=== PATIENT | female | born 1950 | race American Indian/Alaskan Native ===

== ENCOUNTER 2016-09-23 11:44 | Inpatient (IN) | payer MEDICARE ==
[2016-09-23 13:11] LABS: Basophils % (Auto) 0.4 % (0.0-1.8); Mean Corpuscular HGB Conc 29 % (30-34); Mean Corpuscular Volume 76 fl (79-97); Platelet Count 298 K/mm3 (140-440); Red Blood Count 4.45 M/mm3 (3.65-5.03); White Blood Count 7.6 K/mm3 (4.5-11.0)
[2016-09-23 13:19] LABS: Hematocrit 33.7 % (30.3-42.9); Hemoglobin 9.8 gm/dl (10.1-14.3); Mean Corpuscular Hemoglobin 22 pg (28-32)
[2016-09-23 13:20] LABS: INR 1.22 (0.87-1.13)
[2016-09-23 13:21] LABS: Partial Thromboplastin Time 30.6 Sec. (24.2-36.6)
--- NOTE | 2016-09-23 13:37 | XRay Report ---
PA and lateral chest: The heart is big. This a bipolar pacemaker. There is a focal area of atelectasis or scar in the left midlung. There is no vascular congestion and no infiltrates. I have no prior study for comparison. Of incidental note are surgical nona in the right humerus head. Impression: Mild cardiomegaly. No acute findings noted.
[2016-09-23 13:43] LABS: BUN/Creatinine Ratio 13.33; Blood Urea Nitrogen 8 mg/dL (7-17); Calcium 8.8 mg/dL (8.4-10.2); Carbon Dioxide 23 mmol/L (22-30); Chloride 102.4 mmol/L (98-107); Glucose 88 mg/dL (65-100); Sodium 140 mmol/L (137-145)
[2016-09-23 13:46] LABS: Anion Gap 19 mmol/L
[2016-09-23 13:49] LABS: Potassium 4.5 mmol/L (3.6-5.0)
[2016-09-23 13:57] LABS: Amylase 72 units/L (27-131); Lipase 29 units/L (13-60)
[2016-09-23] MEDS ORDERED: ASPIRIN PO ONE (18:32)
[2016-09-23] MEDS ORDERED: MORPHINE IV ONE (18:32)
--- NOTE | 2016-09-23 18:37 | Emergency Department Report ---
ED Chest Pain HPI - General Chief Complaint: Chest Pain Stated Complaint: CHEST PAIN Time Seen by Provider: 09/23/16 18:28 Source: patient Mode of arrival: Ambulatory Limitations: No Limitations - History of Present Illness Initial Comments: This is a 66-year-old -[place]ian female presents to the emergency department from home with complaint of midsternal right-sided chest pain has been going on since 10 PM last night. The intensity improved when she first got to the emergency department but has since worsened. It is associated with some mild shortness of breath and some swelling to the bilateral feet. She denies any fever, nausea, vomiting, diaphoresis. There is some associated radiation to the right side of the back. No recent travel or sick contacts at home. The patient has a past medical history of rheumatoid arthritis, CHF, coronary artery disease with one stent, hypertension and pacemaker placement. The patient's primary care doctor is a Dr. Betts and her roentgenology teacher is through the [facility] system. She did not take anything for symptoms prior to presentation. - Related Data Allergies Allergy/AdvReac Type Severity Reaction Status Date / Time No Known Allergies Allergy Unverified 09/23/16 12:18 JER score - Jer Score Age > 65: (1) Yes Aspirin use within the Past 7 Days: (0) No 3 or more CAD Risk Factors: (1) Yes 2 or more Angina events in past 24 hrs: (1) Yes Known CAD with more than 50% Stenosis: (0) No Elevated Cardiac Markers: (0) No ST Deviation Greater than 0.5mm: (0) No JER Score: 3 ED Review of Systems ROS: Stated complaint: CHEST PAIN Other details as noted in HPI Comment: All other systems reviewed and negative Constitutional: denies: chills, fever Eyes: denies: eye pain, eye discharge, vision change ENT: denies: ear pain, throat pain Respiratory: shortness of breath. denies: cough Cardiovascular: chest pain, edema Gastrointestinal: denies: abdominal pain, nausea, diarrhea Genitourinary: denies: urgency, dysuria, discharge Musculoskeletal: back pain. denies: arthralgia Skin: denies: rash, lesions Neurological: denies: headache, weakness, paresthesias ED Past Medical Hx - Past Medical History Previous Medical History?: Yes Hx Hypertension: Yes Hx Heart Attack/AMI: Yes (1 stent) Hx Congestive Heart Failure: Yes Hx Arthritis: Yes (rheumatory) - Surgical History Past Surgical History?: Yes Additional Surgical History: pacemaker 2016 ([facility] Dr. Cisneros, [facility] [place]) - Social History Smoking Status: Former Smoker Substance Use Type: None, Non Opiate Pain ED Physical Exam - General Limitations: No Limitations - Other Other exam information: GENERAL: The patient is well-developed well-nourished. Patient appears uncomfortable but in no acute distress. HEENT: Normocephalic. Atraumatic. Extraocular motions are intact. Patient has moist mucous membranes. Pupils equal reactive to light bilaterally. NECK: Supple. Trach is midline. CHEST/LUNGS: Clear to auscultation. There is no respiratory distress noted. Chest pain is not reproducible to palpation of the chest wall. HEART/CARDIOVASCULAR: Regular. There is no tachycardia. There is no gallop rub or murmur. ABDOMEN: Abdomen is soft, nontender. Patient has normal bowel sounds. There is no abdominal distention. SKIN: Skin is warm and dry NEURO: The patient is awake, alert, and oriented. The patient is cooperative. The patient has no focal neurologic deficits. The patient has normal speech. MUSCULOSKELETAL: There is no tenderness or deformity. There is no limitation range of motion. There is no evidence of acute injury. ED Course Vital Signs 09/23/16 09/23/16 09/23/16 12:18 15:23 15:30 Temperature 98.5 F Pulse Rate 67 73 68 Respiratory 16 18 10 L Rate Blood Pressure 152/78 121/66 121/66 O2 Sat by Pulse 100 97 98 Oximetry 09/23/16 09/23/16 09/23/16 15:40 15:50 16:00 Temperature Pulse Rate 69 69 73 Respiratory 12 15 18 Rate Blood Pressure 126/80 126/80 126/80 O2 Sat by Pulse 98 98 96 Oximetry 09/23/16 09/23/16 09/23/16 16:10 16:20 16:30 Temperature Pulse Rate 68 68 71 Respiratory 27 H 16 18 Rate Blood Pressure 126/80 126/80 126/80 O2 Sat by Pulse 97 98 97 Oximetry 09/23/16 09/23/16 09/23/16 16:40 16:50 17:00 Temperature Pulse Rate 69 69 74 Respiratory 15 10 L 22 Rate Blood Pressure 126/80 126/80 126/80 O2 Sat by Pulse 98 97 97 Oximetry 09/23/16 09/23/16 09/23/16 17:10 17:20 17:30 Temperature Pulse Rate 82 70 89 Respiratory 11 L 34 H 12 Rate Blood Pressure 126/80 126/80 126/80 O2 Sat by Pulse 98 98 97 Oximetry 09/23/16 09/23/16 09/23/16 17:40 19:23 19:30 Temperature Pulse Rate 79 71 60 Respiratory 15 18 25 H Rate Blood Pressure 126/80 126/80 176/69 O2 Sat by Pulse 98 Oximetry 09/23/16 09/23/16 09/23/16 19:40 19:50 20:00 Temperature Pulse Rate 77 60 60 Respiratory 19 15 19 Rate Blood Pressure 162/73 162/73 162/73 O2 Sat by Pulse Oximetry 09/23/16 09/23/16 09/23/16 20:10 20:20 20:30 Temperature Pulse Rate 59 L 60 60 Respiratory 16 18 20 Rate Blood Pressure 162/73 166/82 167/83 O2 Sat by Pulse Oximetry 09/23/16 09/23/16 09/23/16 20:40 20:50 21:00 Temperature Pulse Rate 62 60 60 Respiratory 20 18 17 Rate Blood Pressure 167/83 164/78 164/78 O2 Sat by Pulse Oximetry 09/23/16 09/23/16 09/23/16 21:10 21:58 22:00 Temperature Pulse Rate 64 65 63 Respiratory 23 18 14 Rate Blood Pressure 154/73 148/79 148/79 O2 Sat by Pulse Oximetry 09/23/16 09/23/16 09/23/16 22:10 22:20 22:30 Temperature Pulse Rate 64 60 64 Respiratory 20 17 22 Rate Blood Pressure 139/81 147/70 147/70 O2 Sat by Pulse Oximetry 09/23/16 09/23/16 09/23/16 22:40 22:50 23:00 Temperature Pulse Rate 61 62 62 Respiratory 20 23 17 Rate Blood Pressure 133/74 130/76 130/76 O2 Sat by Pulse Oximetry 09/23/16 23:10 Temperature Pulse Rate 67 Respiratory 14 Rate Blood Pressure 140/71 O2 Sat by Pulse Oximetry ED Medical Decision Making - Lab Data Result diagrams: 09/23/16 12:49 09/23/16 12:49 - EKG Data -: EKG Interpreted by Me EKG shows normal: sinus rhythm (with PACs), axis (left axis deviation), intervals, QRS complexes (LVH, Q waves in inferior leads), ST-T waves ( nonspecific ST-T changes) Rate: normal - EKG Data When compared to previous EKG there are: previous EKG unavailable Interpretation: other (sinus rhythm with PACs, left axis deviation, LVH, Q waves to the inferior leads) - Radiology Data Radiology results: report reviewed, image reviewed interpreted by me: Chest x-ray did not show any acute process. Heart is normal shape and size. No effusions. No pneumothorax. No signs of pneumonia seen. CT angiography of the chest shows left lower lung subsegmental pulmonary emboli extending very near the posterior and medial basilar left lower lung segmental pulmonary arterial branches. - Medical Decision Making 66-year-old female presents to the emergency department with complaint of chest pain since last night as well as some intermittent shortness of breath. The patient presents appearing uncomfortable but in no acute distress. EKG does not show any signs of ST elevation CO. Patient has had negative troponins 3. However the patient had a elevated d-dimer at [address] angiography[address] results show left lower lobe subsegmental pulmonary emboli that encroach the segmental portions of the posterior medial basilar left arterial branches. Patient will be a started on heparin and has been accepted for admission by the hospitalist, Dr. Britton. - Differential Diagnosis CO, PE, CHF, costochondritis, pneumonia Critical Care Time: No Critical care attestation.: If time is entered above; I have spent that time in minutes in the direct care of this critically ill patient, excluding procedure time. ED Disposition Clinical Impression: Pulmonary emboli Qualifiers: Pulmonary embolism type: other Chronicity: acute Acute cor pulmonale presence: without acute cor pulmonale Qualified Code(s): I26.99 - Other pulmonary embolism without acute cor pulmonale Chest pain Qualifiers: Chest pain type: unspecified Qualified Code(s): R07.9 - Chest pain, unspecified Disposition: OP ADMITTED IP TO THIS HOSP Is pt being admited?: Yes Condition: Stable Time of Disposition: 00:42
--- NOTE | 2016-09-23 18:46 | Admit Criteria Form ---
Admission Criteria Documentation: PULMONARY EMBOLISM Clinical Indications for Admission to Inpatient Care (Place 'X' for any and all applicable criteria): Admission is indicated by ANY ONE of the following 1,2,3,4,5 [ ]I. Onset of hypoxia [ ]II. Hemodynamic instability 5 [ ]III. Massive pulmonary embolism (eg, acute embolism causing sustained hypotension, pulselessness, or bradycardia)5 [ ]IV. Need for IV narcotics (eg, to treat dyspnea) [ ]V. Current use of home oxygen therapy [ ]. Active bleeding [ ]VII. Recent surgery [ ]VIII. Active peptic ulcer disease [ ]IX. Documented extensive thrombosis (eg, clot in vena cava or above iliofemoral bifurcation) [ ]X. Embolism while on anticoagulation [ ]XI. 6 [X]XII. Appropriate monitoring and therapy cannot be provided in home or outpatient setting. [ ]XIII. Systemic or catheter-directed thrombolysis 5,7 [ ]XIV. Catheter embolectomy and fragmentation 6 [ ]XV. Vena cava filter placement5 [ ]XVI. Severely diminished cardiopulmonary reserve (eg, cor pulmonale, pulmonary hypertension) [ ]XVII. Severe renal failure (eg, GFR less than 30 mL/min/1.73m2 (0.5 mL/sec/ 1.73m2)) [ ]XVIII.Right ventricular dysfunction (eg, by echocardiogram) 6,11 [ ]XIX. Positive cardiac biomarker (eg, troponin T or I > 0.1 ng/mL (mcg/L), highly sensitive troponin I assay greater than 0.014 ng/mL (mcg/L), BNP or NT proBNP > assay threshold)5,8,9 [ ]XX. Known clotting abn or def (eg, liver disease, antithrombin III, protein C, or protein S abnormality) [ ]XXI. History of heparin-induced thrombocytopenia [ ]XXII. Inpatient admission required rather than observation care (Also use Pulmonary Embolism: Observation Care guideline as appropriate) because of ANY ONE of the following: [ ] a) Significant autoimmune (thrombocytopenia) or coagulopathic reaction occurs in response to anticoagulation [ ] b) Respiratory symptoms (eg, tachypnea, dyspnea) that are severe or persistent [ ] c) Other condition, treatment, or monitoring requiring inpatient admission Extended stay beyond goal length of stay may be needed for 3,28 [ ]a) Hemorrhage or recent surgery [ ]b) Recurrent thromboembolism [ ]c) Persistent hypoxemia [ ]d) Heparin-induced thrombocytopenia The original [facility] content created by [facility] has been revised. The portions of the content which have been revised are identified through the use of italic text or in bold, and [facility] has neither reviewed nor approved the modified material. All other unmodified content is copyright [facility] [employer]. Please see references footnoted in the original [facility] [employer] edition 2016 Admission Criteria Met: Yes
[2016-09-23] MEDS ORDERED: NACL ONE (20:17)
--- NOTE | 2016-09-23 22:15 | Cat Scan Report ---
FINAL REPORT EXAM: CT ANGIO CHEST HISTORY: CP, elevated dimer TECHNIQUE: CT imaging obtained through the chest in pulmonary angiographic phase following intravenous administration of 100 cc Omnipaque 350 contrast. Transaxial, Coronal and sagittal reformats are provided. PRIORS: None. FINDINGS: Main pulmonary artery is slightly enlarged. Left lower lung segmental pulmonary emboli seen on axial series 3, image 59. Thoracic aorta is normal in course and caliber. Cardiomegaly. Partially imaged pacemaker leads. No pericardial effusion. Bibasilar atelectasis/scarring. No pneumothorax, effusion or focal airspace disease. The central airways are patent. No bronchiectasis. Imaged portion of the upper abdomen is remarkable for a right hepatic nonenhancing 17 millimeter cyst adjacent to the gallbladder fossa on axial image 105 with eccentric punctate 2 millimeter calcification. Additional low-density lesion in the superior right hepatic lobe measures up to 8 millimeters on axial image 76, which is too small to fully characterize but is probably benign. The superficial soft tissues are unremarkable. No acute bony abnormality or worrisome osseous lesions identified. Glenohumeral osteoarthritis. IMPRESSION: Left lower lung subsegmental pulmonary emboli extending very near the posterior and medial basilar left lower lung segmental pulmonary arterial branches. Dr. Ortega discussed findings with Dr. Richards at [address] [employer] following the examination.
--- NOTE | 2016-09-23 22:29 | History and Physical Report ---
History of Present Illness Date of examination: 09/23/16 Chief complaint: Chest pain History of present illness: 66-year-old -[place] female with past medical history significant for A. fib status post pacemaker placement, hypertension, CAD status post stent placement, arthritis presented to the emergency department complaining of chest tightness that started this evening. Right-sided chest tightness, 7 out of 10 in intensity, with radiation to the back. Tightness is on and off and happened while at rest. Patient denied any shortness of breath, cough. Patient denied any recent surgery or immobilization. REVIEW OF SYSTEMS: GENERAL: no weight change, no fatigue, no fever HEAD: no head ache EYES: no blurry vision, no acute visual loss EARS: no hearing loss, no discharge, no earache NOSE: no stuffiness, no sneezing, no discharge MOUTH, THROAT AND NECK: no bleeding gums, no sore throat, no swollen neck CARDIAC: no palpitations, no dyspnea on exertion, no orthopnea, no PND, no edema , + chest pain RESPIRATORY: no shortness of breath, no wheeze, no cough, no sputum, no hemoptysis, no asthma GI: no decreased appetite, no nausea, no vomiting, no dysphagia, no diarrhea, no constipation, no abdominal pain URINARY: no change in frequency, no urgency, no polyuria, no hematuria, no incontinence MUSCULOSKELETAL: no muscle weakness, no pain, no joint stiffness NEUROLOGIC: no loss of sensation/numbness, no tingling, no tremors, no weakness/ paralysis HEMATOLOGIC: no anemia, no easy bruising SKIN: no rashes ENDOCRINE: no heat/cold intolerance, no polyuria, no polydipsia, no thyroid problems, no diabetes PSYCHIATRIC: no anxiety, no depression, no suicidal ideations Past History Past Medical History: atrial fib, CAD, hypertension Past Surgical History: Other (carpal tunnel release and shoulder surgery) Social history: full code. denies: smoking, alcohol abuse, prescription drug abuse, IV drug use Family history: CAD Medications and Allergies Allergies Allergy/AdvReac Type Severity Reaction Status Date / Time No Known Allergies Allergy Unverified 09/23/16 12:18 Exam - Physical Exam Narrative exam: Not in cardiopulmonary distress. The patient appeared well nourished and normally developed. Vital signs as documented. Head exam is unremarkable. No scleral icterus . Neck is without jugular venous distension, thyromegaly, or carotid bruits. Lungs are clear to auscultation. Cardiac exam reveals regular rate and Rhythm. First and second heart sounds normal. No murmurs, rubs or gallops. Abdominal exam reveals normal bowel sounds, no masses, no organomegaly and no aortic enlargement. Extremities are nonedematous and both femoral and pedal pulses are normal. 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 No focal weakness. - Constitutional Vitals: Temp Pulse Resp BP Pulse Ox 98.5 F 64 23 154/73 98 09/23/16 12:18 09/23/16 21:10 09/23/16 21:10 09/23/16 21:10 09/23/16 17:40 Results - Labs CBC & Chem 7: 09/23/16 12:49 09/23/16 12:49 Labs: Laboratory Last Values WBC 7.6 K/mm3 (4.5-11.0) 09/23/16 12:49 RBC 4.45 M/mm3 (3.65-5.03) 09/23/16 12:49 Hgb 9.8 gm/dl (10.1-14.3) L 09/23/16 12:49 Hct 33.7 % (30.3-42.9) 09/23/16 12:49 MCV 76 fl (79-97) L 09/23/16 12:49 MCH 22 pg (28-32) L 09/23/16 12:49 MCHC 29 % (30-34) L 09/23/16 12:49 RDW 20.0 % (13.2-15.2) H 09/23/16 12:49 Plt Count 298 K/mm3 (140-440) 09/23/16 12:49 Lymph % (Auto) 18.8 % (13.4-35.0) 09/23/16 12:49 [place] % (Auto) 4.7 % (0.0-7.3) 09/23/16 12:49 Eos % (Auto) 1.0 % (0.0-4.3) 09/23/16 12:49 Baso % (Auto) 0.4 % (0.0-1.8) 09/23/16 12:49 Lymph # 1.4 K/mm3 (1.2-5.4) 09/23/16 12:49 [place] # 0.4 K/mm3 (0.0-0.8) 09/23/16 12:49 Eos # 0.1 K/mm3 (0.0-0.4) 09/23/16 12:49 Baso # 0.0 K/mm3 (0.0-0.1) 09/23/16 12:49 Seg Neutrophils % 75.1 % (40.0-70.0) H 09/23/16 12:49 Seg Neutrophils # 5.7 K/mm3 (1.8-7.7) 09/23/16 12:49 PT 15.3 Sec. (12.2-14.9) H 09/23/16 12:49 INR 1.22 (0.87-1.13) H 09/23/16 12:49 APTT 30.6 Sec. (24.2-36.6) 09/23/16 12:49 D-Dimer 1714.63 ng/mlDDU (0-234) H 09/23/16 19:38 Sodium 140 mmol/L (137-145) 09/23/16 12:49 Potassium 4.5 mmol/L (3.6-5.0) 09/23/16 12:49 Chloride 102.4 mmol/L (98-107) 09/23/16 12:49 Carbon Dioxide 23 mmol/L (22-30) 09/23/16 12:49 Anion Gap 19 mmol/L 09/23/16 12:49 BUN 8 mg/dL (7-17) 09/23/16 12:49 Creatinine 0.6 mg/dL (0.7-1.2) L 09/23/16 12:49 Estimated GFR > 60 ml/min 09/23/16 12:49 BUN/Creatinine Ratio 13.33 % 09/23/16 12:49 Glucose 88 mg/dL (65-100) 09/23/16 12:49 Calcium 8.8 mg/dL (8.4-10.2) 09/23/16 12:49 Troponin T 0.014 ng/mL (0.00-0.029) 09/23/16 19:38 NT-Pro-B Natriuret Pep 2129 pg/mL (0-900) H 09/23/16 12:49 Amylase 72 units/L (27-131) 09/23/16 12:49 Lipase 29 units/L (13-60) 09/23/16 12:49 - Imaging and Cardiology CT scan - chest: report reviewed (right lower lobe subsegmental PE) Assessment and Plan Assessment and plan: Chest pain PE A. fib status post pacemaker CAD status post stent Hypertension - Patient started on heparin drip - Restart home medication - Cardiology consult placed - Cardiac enzymes were negative - A. fib is rate controlled DVT prophylaxis - On therapeutic heparin Disposition - Admit to telemetry floor Advance Directives: Yes VTE prophylaxis?: Chemical Plan of care discussed with patient/family: Yes
[2016-09-23] MEDS ORDERED: HEPARIN 10,000 UNITS/10 ML IV ONE (22:50)
[2016-09-23] MEDS ORDERED: HEPARIN/ 0.45% NACL-25,000 UNIT/500 ML 25,000 UNIT/500 ML BAG IV SCH (23:00)
[2016-09-23 23:52] LABS: INR 1.24 (0.87-1.13)
[2016-09-24] MEDS: MORPHINE IV PRN ×2 (05:15→09:23)
[2016-09-24] MEDS ORDERED: PROAIR IH PRN (08:26)
[2016-09-24] MEDS ORDERED: NITROSTAT SL PRN (08:26)
[2016-09-24] MEDS ORDERED: PROVENTIL IH PRN (08:40)
[2016-09-24] MEDS: TOPROL XL PO SCH (09:20)
[2016-09-24] MEDS: COZAAR PO SCH (09:20)
[2016-09-24] MEDS: BABY ASPIRIN PO SCH (09:21)
[2016-09-24] MEDS ORDERED: ASPIRIN PO SCH (10:00)
[2016-09-24] MEDS ORDERED: BRILINTA PO SCH (10:00)
[2016-09-24] MEDS ORDERED: FLUARIX QUAD 2016-2017(36 MOS+) IM ONE (12:00)
--- NOTE | 2016-09-24 12:36 | Consultation ---
History of Present Illness Consult date: 09/24/16 Requesting physician: AYUSH LEUNG Consult reason: chest pain History of present illness: This is a 66-year-old female with known history of coronary disease PCI of LAD 2016 PCI of the RCA in August 2016 [place] patient required dual- chamber pacemaker for symptomatic Mobitz type 2-1 block patient presents here since having chest pain right-sided radiate into her neck with no nausea no vomiting patient on CT of the chest, pulmonary embolism placed on heparin therapy patient chest pain is mildly improved has no nausea no vomiting patient denies any sedentary Activities didn't take a recent fight [employer] only. Patient denies any swelling. No melanoma. No bleeding issues. No syncope episode. No palpitations. Chest pain is sharp in nature and not exertional Past History Past Medical History: CAD (PCI of the LAD in 2015, PCI of the RCA with 3 drug- eluting stents and a dual-chamber pacemaker Biotronik), hypertension, hyperlipidemia Past Surgical History: Other (carpal tunnel release and shoulder surgery and a dual-chamber pacemaker Biotronik) Social history: full code. denies: smoking, alcohol abuse, prescription drug abuse, IV drug use Family history: CAD Medications and Allergies Allergies Allergy/AdvReac Type Severity Reaction Status Date / Time No Known Allergies Allergy Unverified 09/23/16 12:18 Home Medications Medication Instructions Recorded Confirmed Last Taken Type Albuterol Sulfate [Ventolin HFA] 2 puff IH Q4H PRN 09/24/16 09/24/16 Unknown History Aspirin [Aspirin BABY CHEW TAB] 81 mg PO QDAY 09/24/16 09/24/16 Unknown History AtorvaSTATin [Lipitor] 40 mg PO DAILY 09/24/16 09/24/16 Unknown History Benzonatate [Tessalon Perles] 100 mg PO Q8HR 09/24/16 09/24/16 Unknown History HYDROcodone/APAP 5-325 [[place] 1 each PO Q8HR PRN 09/24/16 09/24/16 Unknown History 5/325] Losartan [Cozaar] 50 mg PO QDAY 09/24/16 09/24/16 Unknown History Metoprolol Xl [Metoprolol 25 mg PO QDAY 09/24/16 09/24/16 Unknown History SUCCINATE ER TAB] Nitroglycerin [Nitrostat] 0.4 mg SL Q5M PRN 09/24/16 09/24/16 Unknown History Prednisone [predniSONE] 1 mg PO QDAY 09/24/16 09/24/16 Unknown History Ticagrelor [Brilinta] 90 mg PO BID 09/24/16 09/24/16 Unknown History Active Meds: Active Medications Acetaminophen/Hydrocodone Bitart ([place] 5/325) 1 each PO Q8H PRN PRN Reason: Pain,MODERATE Albuterol (Proventil) 2.5 mg IH Q6HRT PRN PRN Reason: Shortness Of Breath Apixaban (Eliquis) 10 mg PO Q12HR MARTIN Aspirin (Baby Aspirin) 81 mg PO QDAY [facility] Last Admin: 09/24/16 09:21 Dose: 81 mg Atorvastatin Calcium (Lipitor) 40 mg PO HS MARTIN Benzonatate (Tessalon Perles) 100 mg PO Q8HR MARTIN Clopidogrel Bisulfate (Plavix) 75 mg PO QDAY [facility] Heparin Sodium/Sodium Chloride (Heparin/ 0.45% Nacl-25,000 Unit/500 Ml) 25,000 unit in 500 mls @ 20 mls/hr IV TITRATE MARTIN; 1,000 UNITS/HR PRN Reason: Protocol Stop: 09/24/16 23:00 Last Titration: 09/24/16 08:23 Dose: 1,000 units/hr, 20 mls/hr Losartan Potassium (Cozaar) 50 mg PO QDAY [facility] Last Admin: 09/24/16 09:20 Dose: 50 mg Metoprolol Succinate (Toprol Xl) 25 mg PO QDAY [facility] Last Admin: 09/24/16 09:20 Dose: 25 mg Morphine Sulfate (Morphine) 2 mg IV Q4H PRN PRN Reason: Pain, Moderate (4-6) Last Admin: 09/24/16 09:23 Dose: 2 mg Nitroglycerin (Nitrostat) 0.4 mg SL Q5M PRN PRN Reason: Chest Pain Prednisone (Prednisone) 1 mg FEEDTUBE QDAY [facility] Review of Systems All systems: negative (except HPI) Physical Examination Vital Signs Temp Pulse Resp BP Pulse Ox 98.5 F 67 16 152/78 100 09/23/16 12:18 09/23/16 12:18 09/23/16 12:18 09/23/16 12:18 09/23/16 12:18 General appearance: no acute distress, well-nourished HEENT: Positive: PERRL, Mucus Membranes Moist Neck: Positive: neck supple, trachea midline Cardiac: Positive: Reg Rate and Rhythm, S1/S2. Negative: Audible Murmur Lungs: Positive: clear to auscultation, Normal Breath Sounds Neuro: Positive: Grossly Intact Abdomen: Positive: Soft, Active Bowel Sounds. Negative: Tender, Distended Female genitourinary: deferred Skin: Positive: Clear Incision: Cardiac Cath Site Musculoskeletal: No Pain, Normal Range of Motion Extremities: Present: normal. Absent: edema Results 09/23/16 12:49 09/23/16 12:49 Coagulation 09/23/16 Range/Units 23:10 PT 15.5 H (12.2-14.9) Sec. INR 1.24 H (0.87-1.13) APTT 178.0 H* (24.2-36.6) Sec. - Imaging and Cardiology Cardiac cath: report reviewed (08/2016 main patent LAD mid stent patent circumflex patent RCA diffuse disease drug-eluting stent 2.75 x 38 and 3 5 x 38 over lapping, proximal neeta 4.0 by 16 secondary no reflow. With normal LV function) EKG interpretations - Telemetry EKG Rhythm: Sinus Rhythm (normal sinus rhythm with T-wave inversion in inferior leads no change from previous EKG) Assessment and Plan Chest pain secondary to pulmonary embolism Coronary disease with recent PCI of RCA with drug-eluting stent Hypertension Hyperlipidemia nstemi type 2 secondary pe Recommend follow echocardiogram transition from heparin [id number] mg twice a day along with aspirin 81 mg and Plavix 75 explained the risk and benefits to the patient
[2016-09-24] MEDS: TESSALON PERLES PO SCH ×2 (14:15→21:54)
--- NOTE | 2016-09-24 14:37 | Progress Note ---
Assessment and Plan Assessment and plan: 66-year-old -Thai female with past medical history significant for CAD stent placement subsequently status post pacemaker placement, done about side effects also with hypertension, CAD status post stent placement, arthritis presented to the emergency department complaining of chest tightness. Right- sided chest tightness, 7 out of 10 in intensity, with radiation to the back. Tightness is on and off and happened while at rest. Patient denied any shortness of breath, cough. Patient denied any recent surgery or immobilization. On arrival to the hospital imaging studies confirmed pulmonary embolism. * Chest pain secondary to pulmonary embolism * Pulmonary embolism * Coronary artery disease status post recent PCI of RCA with JENNI * Severe rheumatoid arthritis * Hypertension * Hyperlipidemia * NSTEMI TYPE 2 * Cardiac arrhythmia no evidence of atrial fibrillation Plan * Continue heparin drip, will transition to Avapro as 10 mg twice daily continue aspirin and Plavix risk and benefits explained in detail to the patient. 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 if clinically stable * DVT and GI prophylaxis * Plan of care discussed with patient and family History Interval history: Patient seen and examined this morning in no acute distress, was admitted with chest pain noted to have pulmonary embolism. Reports of severe arthritis. Reports of severe arthritis. Denies any chest pain, nausea, vomiting, diarrhea No fever noted blood pressure controlled No adverse events reported to me by nursing staff Hospitalist Physical - Physical exam Narrative exam: VITAL SIGNS: Reviewed. GENERAL: The patient appeared well nourished and normally developed. Vital signs as documented. HEAD: No signs of head trauma. EYES: Pupils are equal. Extraocular motions intact. EARS: Hearing grossly intact. MOUTH: Oropharynx is normal. NECK: No adenopathy, no JVD. CHEST: Chest with clear breath sounds bilaterally. No wheezes, rales, or rhonchi. CARDIAC: Regular rate and rhythm. S1 and S2, without murmurs, gallops, or rubs. VASCULAR: Left lower extremity with +1 pitting edema. Peripheral pulses normal and equal in all extremities. ABDOMEN: Soft, without detectable tenderness. No sign of distention. No rebound or guarding, and no masses palpated. Bowel Sounds normal. MUSCULOSKELETAL: Good range of motion of all major joints. Extremities without clubbing, cyanosis +1 pitting edema left lower extremity NEUROLOGIC EXAM: Alert and oriented x 3. No focal sensory or strength deficits. Speech normal. Follows commands. PSYCHIATRIC: Mood normal. SKIN: No rash or lesions. - Constitutional Vitals: Temp Pulse Resp BP Pulse Ox 97.9 F 72 18 168/87 100 09/24/16 13:14 09/24/16 13:14 09/24/16 13:14 09/24/16 13:14 09/24/16 13:14 General appearance: Present: no acute distress, well-nourished Results - Labs CBC & Chem 7: 09/23/16 12:49 09/23/16 12:49 Labs: Laboratory Last Values WBC 7.6 K/mm3 (4.5-11.0) 09/23/16 12:49 RBC 4.45 M/mm3 (3.65-5.03) 09/23/16 12:49 Hgb 9.8 gm/dl (10.1-14.3) L 09/23/16 12:49 Hct 33.7 % (30.3-42.9) 09/23/16 12:49 MCV 76 fl (79-97) L 09/23/16 12:49 MCH 22 pg (28-32) L 09/23/16 12:49 MCHC 29 % (30-34) L 09/23/16 12:49 RDW 20.0 % (13.2-15.2) H 09/23/16 12:49 Plt Count 298 K/mm3 (140-440) 09/23/16 12:49 Lymph % (Auto) 18.8 % (13.4-35.0) 09/23/16 12:49 [place] % (Auto) 4.7 % (0.0-7.3) 09/23/16 12:49 Eos % (Auto) 1.0 % (0.0-4.3) 09/23/16 12:49 Baso % (Auto) 0.4 % (0.0-1.8) 09/23/16 12:49 Lymph # 1.4 K/mm3 (1.2-5.4) 09/23/16 12:49 [place] # 0.4 K/mm3 (0.0-0.8) 09/23/16 12:49 Eos # 0.1 K/mm3 (0.0-0.4) 09/23/16 12:49 Baso # 0.0 K/mm3 (0.0-0.1) 09/23/16 12:49 Seg Neutrophils % 75.1 % (40.0-70.0) H 09/23/16 12:49 Seg Neutrophils # 5.7 K/mm3 (1.8-7.7) 09/23/16 12:49 PT 15.5 Sec. (12.2-14.9) H 09/23/16 23:10 INR 1.24 (0.87-1.13) H 09/23/16 23:10 APTT 178.0 Sec. (24.2-36.6) H* 09/23/16 23:10 D-Dimer 1714.63 ng/mlDDU (0-234) H 09/23/16 19:38 Heparin Anti-Xa Level 0.38 U.I./ml (0.3-0.7) 09/24/16 07:36 Sodium 140 mmol/L (137-145) 09/23/16 12:49 Potassium 4.5 mmol/L (3.6-5.0) 09/23/16 12:49 Chloride 102.4 mmol/L (98-107) 09/23/16 12:49 Carbon Dioxide 23 mmol/L (22-30) 09/23/16 12:49 Anion Gap 19 mmol/L 09/23/16 12:49 BUN 8 mg/dL (7-17) 09/23/16 12:49 Creatinine 0.6 mg/dL (0.7-1.2) L 09/23/16 12:49 Estimated GFR > 60 ml/min 09/23/16 12:49 BUN/Creatinine Ratio 13.33 % 09/23/16 12:49 Glucose 88 mg/dL (65-100) 09/23/16 12:49 Calcium 8.8 mg/dL (8.4-10.2) 09/23/16 12:49 Troponin T 0.014 ng/mL (0.00-0.029) 09/23/16 19:38 NT-Pro-B Natriuret Pep 2129 pg/mL (0-900) H 09/23/16 12:49 Amylase 72 units/L (27-131) 09/23/16 12:49 Lipase 29 units/L (13-60) 09/23/16 12:49 - Imaging and Cardiology CT scan - chest: image reviewed (pulmonary embolism)
[2016-09-24] MEDS ORDERED: ZOFRAN IV PRN (19:41)
[2016-09-24] MEDS: NORCO 5/325 PO PRN (20:35)
[2016-09-24] MEDS: ELIQUIS PO SCH (21:54)
[2016-09-25] MEDS: NORCO 5/325 PO PRN (04:03)
[2016-09-25 06:13] LABS: Hematocrit 30.3 % (30.3-42.9); Hemoglobin 9.4 gm/dl (10.1-14.3)
[2016-09-25 06:20] LABS: Alanine Aminotransferase 7 units/L (7-56); Albumin 3.1 g/dL (3.9-5); Albumin/Globulin Ratio 0.9 %; Alkaline Phosphatase 51 units/L (35-129); Anion Gap 17 mmol/L; BUN/Creatinine Ratio 11.66; Bilirubin,Total 0.9 mg/dL (0.1-1.2); Blood Urea Nitrogen 7 mg/dL (7-17); Calcium 8.5 mg/dL (8.4-10.2); Carbon Dioxide 26 mmol/L (22-30); Glucose 84 mg/dL (65-100); Sodium 136 mmol/L (137-145); Total Protein 6.7 g/dL (6.3-8.2)
[2016-09-25 06:21] LABS: Potassium 3.5 mmol/L (3.6-5.0)
--- NOTE | 2016-09-25 09:38 | Discharge Summary ---
Providers - Providers Date of Admission: 09/23/16 22:26 Date of discharge: 09/25/16 Attending physician: RENETTA HAWKINS MD 09/24/16 03:40 Consult to Physician [CONS] Routine Consulting Provider: ANNETTA FIGUEROA Reason For Exam: chest pain, PE Place consult to:: Dr. Figueroa Notified:: Tyshawn STEVE Phone number called:: Was contact made?: Yes If yes, spoke with:: Bertha[facility]al[facility] service Time called:: 08:12 Primary care physician: [employer] Hospitalization Reason for admission: PE Condition: Stable Hospital course: 66-year-old -[place]or[place] female with past medical history significant for CAD stent placement subsequently status post pacemaker placement, done about side effects also with hypertension, CAD status post stent placement, arthritis presented to the emergency department complaining of chest tightness. Right- sided chest tightness, 7 out of 10 in intensity, with radiation to the back. Tightness is on and off and happened while at rest. Patient denied any shortness of breath, cough. Patient denied any recent surgery or immobilization. On arrival to the hospital imaging studies confirmed pulmonary embolism. Patient was started on heparin drip subsequently transitions to Eliquis. Cardiology did see the patient and we reevaluated all her records. She recently did have cardiac catheterization with PCI to RCA with JENNI. She will continue on aspirin and Plavix and enalapril as I have discussed side effects of medications with the patient she verbalized understanding. * Chest pain secondary to pulmonary embolism * Pulmonary embolism * Coronary artery disease status post recent PCI of RCA with JENNI * Severe rheumatoid arthritis * Hypertension * Hyperlipidemia * NSTEMI TYPE 2 * Cardiac arrhythmia no evidence of atrial fibrillation Disposition: DC/TX HOME UNDER HOME HEALTH Time spent for discharge: 35 mins Core Measure Documentation - Palliative Care Palliative Care/ Comfort Measures: Not Applicable - Core Measures Any of the following diagnoses?: DVT/PE - VTE Discharge Requirements Deep Vein Thrombosis/Pulmonary Embolism Present on Admission: Yes Has pt received <5 days of overlap therapy or INR<2.0: Yes Anticoagulant overlap therapy prescribed at discharge: Yes Exam - Physical Exam Narrative exam: VITAL SIGNS: Reviewed. GENERAL: The patient appeared well nourished and normally developed. Vital signs as documented. HEAD: No signs of head trauma. EYES: Pupils are equal. Extraocular motions intact. EARS: Hearing grossly intact. MOUTH: Oropharynx is normal. NECK: No adenopathy, no JVD. CHEST: Chest with clear breath sounds bilaterally. No wheezes, rales, or rhonchi. CARDIAC: Regular rate and rhythm. S1 and S2, without murmurs, gallops, or rubs. VASCULAR: Left lower extremity with +1 pitting edema. Peripheral pulses normal and equal in all extremities. ABDOMEN: Soft, without detectable tenderness. No sign of distention. No rebound or guarding, and no masses palpated. Bowel Sounds normal. MUSCULOSKELETAL: Good range of motion of all major joints. Extremities without clubbing, cyanosis +1 pitting edema left lower extremity NEUROLOGIC EXAM: Alert and oriented x 3. No focal sensory or strength deficits. Speech normal. Follows commands. PSYCHIATRIC: Mood normal. SKIN: No rash or lesions. - Constitutional Vitals: Temp Pulse Resp BP Pulse Ox 99.9 F H 70 18 155/71 97 09/25/16 06:23 09/25/16 06:23 09/25/16 06:23 09/25/16 06:23 09/25/16 06:23 Plan Activity: advance as tolerated, fall precautions Diet: low fat, low salt Special Instructions: record daily BP diary, physical therapy, occupational therapy Follow up with: PRIMARY CARE, [Primary Care Provider] - 3-5 Days FRANKY BARFIELD MD [Staff Physician] - 7 Days STACEY MULLINS MD [Staff Physician] - 7 Days Prescriptions: Apixaban [Eliquis] 10 mg PO Q12HR #14 tablet Apixaban [Eliquis] 5 mg PO BID #60 tablet HYDROcodone/APAP 5-325 [[place] 5-325 mg TAB] 1 each PO Q8HR PRN #10 tablet PRN Reason: Pain
[2016-09-25] MEDS ORDERED: PLAVIX PO SCH (10:00)
[2016-09-25] MEDS ORDERED: DELTASONE PO SCH (10:00)
[2016-09-25] MEDS ORDERED: predniSONE FEEDTUBE SCH (10:00)
[2016-09-25 10:40] VITALS: BP 126/72
--- NOTE | 2016-09-25 11:15 | Progress Note ---
Assessment and Plan Chest pain secondary to pulmonary embolism Coronary disease with recent PCI of RCA with drug-eluting stent Hypertension Hyperlipidemia nstemi type 2 secondary pe Recommend continue aspirin Plavix and eliquis 10 mg twice a day for one week and 5 mg twice a day patient will follow-up in cardiology clinic and continue hypertension and cholesterol medicines Subjective Date of service: 09/25/16 Principal diagnosis: chest pain Interval history: Patient's chest pain has improved Objective Vital Signs Temp Pulse Pulse Resp BP Pulse Ox 09/25/16 08:00 98.6 F 64 18 126/72 97 09/25/16 06:23 99.9 F H 70 18 155/71 97 09/25/16 04:03 16 09/25/16 01:15 98.7 F 66 18 139/71 98 09/24/16 21:36 99.3 F 73 20 168/79 96 09/24/16 17:43 98.8 F 68 18 176/79 97 09/24/16 13:14 97.9 F 72 18 168/87 100 - Physical Examination General: No Apparent Distress HEENT: Positive: PERRL, Mucus Membranes Moist Neck: Positive: neck supple, trachea midline Cardiac: Positive: Reg Rate and Rhythm Lungs: Positive: clear to auscultation Neuro: Positive: Grossly Intact Abdomen: Positive: Soft, Active Bowel Sounds. Negative: Tender, Distended Skin: Positive: Clear Incision: Cardiac Cath Site Musculoskeletal: No Pain, Normal Range of Motion Extremities: Present: normal. Absent: edema - Labs and Meds Cardiac Enzymes 09/25/16 Range/Units 05:16 AST 10 (5-40) units/L CBC 09/25/16 Range/Units 05:16 Hgb 9.4 L (10.1-14.3) gm/dl Hct 30.3 (30.3-42.9) % Plt Count 283 (140-440) K/mm3 Comprehensive Metabolic Panel 09/25/16 Range/Units 05:16 Sodium 136 L (137-145) mmol/L Potassium 3.5 L D (3.6-5.0) mmol/L Chloride 97.0 L (98-107) mmol/L Carbon Dioxide 26 (22-30) mmol/L BUN 7 (7-17) mg/dL Creatinine 0.6 L (0.7-1.2) mg/dL Glucose 84 (65-100) mg/dL Calcium 8.5 (8.4-10.2) mg/dL AST 10 (5-40) units/L ALT 7 (7-56) units/L Alkaline Phosphatase 51 (35-129) units/L Total Protein 6.7 (6.3-8.2) g/dL Albumin 3.1 L (3.9-5) g/dL - Imaging and Cardiology Echo: report reviewed (normal LV function mild tricuspid regurgitation RBC of 40 mmHg) Cardiac cath: report reviewed (08/2016 main patent LAD mid stent patent circumflex patent RCA diffuse disease drug-eluting stent 2.75 x 38 and 3 5 x 38 over lapping, proximal neeta 4.0 by 16 secondary no reflow. With normal LV function) - Telemetry EKG Rhythm: Sinus Rhythm
[2016-09-25] MEDS: COZAAR PO SCH (11:49)
[2016-09-25] MEDS: ELIQUIS PO SCH (11:49)
[2016-09-25] MEDS: TOPROL XL PO SCH (11:50)
[2016-09-25] MEDS: BABY ASPIRIN PO SCH (11:50)
--- NOTE | 2016-09-26 07:38 | Vascular Lab Report ---
LOWER EXTREMITY VENOUS DUPLEX: REASON FOR EXAM: Pain and swelling of the lower extremities. COMMENTS ON THE RIGHT: Thrombus is noted in the right soleal vein.. The remaining veins visualized are freely compressible without evidence of internal echogenicity. Spontaneous and phasic flow is present proximally. COMMENTS ON THE LEFT: Thrombus is found in the left gastrocnemius vein. The remaining veins visualized are freely compressible without evidence of internal echogenicity. Spontaneous and phasic flow is present proximally. IMPRESSION: Bilateral calf deep venous thrombosis.
== END 2016-09-25 15:33 | disposition home health service (06) | DRG 175 ==
LOC: ED 11:44 → 4A 22:26
PROVIDERS: ADMIT Internal Medicine; ATTEND Internal Medicine
DX: I26.99 Other pulmonary embolism without acute cor pulmonale (principal); I21.4 Non-ST elevation (NSTEMI) myocardial infarction; I11.0 Hypertensive heart disease with heart failure; I50.9 Heart failure, unspecified; I48.91 Unspecified atrial fibrillation; I25.10 Atherosclerotic heart disease of native coronary artery without angina pectoris; E78.5 Hyperlipidemia, unspecified; M06.9 Rheumatoid arthritis, unspecified; Z87.891 Personal history of nicotine dependence; Z82.49 Family history of ischemic heart disease and other diseases of the circulatory system; Z98.61 Coronary angioplasty status
CPT/HCPCS: 36415; 71020; 71275; 80048; 80053; 82150; 83690; 83880; 84484; 85014; 85018; 85025; 85049; 85379; 85520; 85610; 85730; 90686; 93005; 93010; 93306; 93970; 96374; 96375; A9270-GY; J1644; J2270; J2405; J7512; Q9967

== ENCOUNTER 2017-01-10 14:28 | Inpatient (IN) | payer MEDICARE ==
--- NOTE | 2017-01-10 14:57 | Emergency Department Report ---
Chief Complaint: Chest Pain Stated Complaint: CHEST PAIN Time Seen by Provider: 01/10/17 14:55 - HPI History of Present Illness: Patient is a 66-year-old female with a history of blood pressure presents to the ED complaining of left sided chest pain for the symptoms this morning. She denied fevers/chills/plan condition/shortness of breath/headache - ROS Review of Systems: As noted in HPI - Exam Vital Signs: Vital Signs 01/10/17 14:36 Temperature 98.9 F Pulse Rate 81 Respiratory 24 Rate Blood Pressure 151/97 O2 Sat by Pulse 96 Oximetry Physical Exam: GENERAL: Alert and oriented x3, mild distress, Normal Gait, atraumatic. HEAD: Head is normocephalic and a-traumatic. EYES: Extra ocular muscles are intact. Pupils are equal, round, and reactive to light and accommodation. LUNGS: Symetrical with respiration, No wheezing, no rales or crackles, CTAB. HEART: S1, S2 present, regular rate and rhythm without murmur, no rubs, no gallops. Non tender to palpation MSE screening note: Focused history and physical exam performed. Due to findings the following was ordered: ED Medical Decision Making - Medical Decision Making Chest protocol ordered. Patient to be seen by a physician. ED Disposition for MSE Condition: Stable
[2017-01-10 15:30] LABS: Eosinophils % (Auto) 1.2 % (0.0-4.3); Hematocrit 33.5 % (30.3-42.9); Hemoglobin 10.2 gm/dl (10.1-14.3); Mean Corpuscular HGB Conc 30 % (30-34); Mean Corpuscular Hemoglobin 22 pg (28-32); Mean Corpuscular Volume 71 fl (79-97); Platelet Count 335 K/mm3 (140-440); Red Blood Count 4.72 M/mm3 (3.65-5.03); Red Cell Distribution Width 19.4 % (13.2-15.2); White Blood Count 7.2 K/mm3 (4.5-11.0)
[2017-01-10 15:43] LABS: Anion Gap 18 mmol/L; BUN/Creatinine Ratio 17.14; Blood Urea Nitrogen 12 mg/dL (7-17); Calcium 8.6 mg/dL (8.4-10.2); Carbon Dioxide 26 mmol/L (22-30); Chloride 101.6 mmol/L (98-107); Glucose 86 mg/dL (65-100); Potassium 3.7 mmol/L (3.6-5.0); Sodium 142 mmol/L (137-145)
[2017-01-10] MEDS ORDERED: TYLENOL PO ONE (17:46)
[2017-01-10] MEDS ORDERED: MORPHINE IV ONE (22:38)
[2017-01-10] MEDS ORDERED: ZOFRAN IV ONE (22:38)
--- NOTE | 2017-01-10 22:43 | Emergency Department Report ---
ED Chest Pain HPI - General Chief Complaint: Chest Pain Stated Complaint: CHEST PAIN Time Seen by Provider: 01/10/17 14:58 Source: patient Mode of arrival: Ambulatory Limitations: No Limitations - History of Present Illness Initial Comments: 66 yo female with the past medical history of CHF, CAD with RCA stent and pacemaker placed in August 2016, and recently diagnosed PE via CTA in August 2016 presents to the hospital complaining of chest pain since this morning. Pain is described as a ton of bricks on her chest. Pain is in the mid chest that started a radiates to left side. It is 9/10 in intensity, intermittent, worse with deep inspiration. No specific alleviating factors. Positive associated shortness of breath. Denies nausea, vomiting, diaphoresis or calf tenderness. Patient has been compliant with all her medications including Eliquis with the exception of Plavix. Patient only takes the Plavix intermittently because the pill is too big to swallow. Patient has nitroglycerin at home but did not take prior to arrival. 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 Poon. Severity scale (0 -10): 9 - Related Data Home Medications Medication Instructions Recorded Confirmed Last Taken Albuterol Sulfate [Ventolin HFA] 2 puff IH Q4H PRN 09/24/16 09/24/16 Unknown Aspirin [Aspirin BABY CHEW TAB] 81 mg PO QDAY 09/24/16 09/24/16 Unknown AtorvaSTATin [Lipitor] 40 mg PO DAILY 09/24/16 09/24/16 Unknown Benzonatate [Tessalon Perles] 100 mg PO Q8HR 09/24/16 09/24/16 Unknown Losartan [Cozaar] 50 mg PO QDAY 09/24/16 09/24/16 Unknown Metoprolol Xl [Metoprolol 25 mg PO QDAY 09/24/16 09/24/16 Unknown SUCCINATE ER TAB] Nitroglycerin [Nitrostat] 0.4 mg SL Q5M PRN 09/24/16 09/24/16 Unknown Prednisone [predniSONE] 1 mg PO QDAY 09/24/16 09/24/16 Unknown Previous Rx's Medication Instructions Recorded Last Taken Type Apixaban [Eliquis] 10 mg PO Q12HR #14 tablet 09/25/16 Unknown Rx Clopidogrel [Plavix] 75 mg PO QDAY tablet 09/25/16 Unknown Rx HYDROcodone/APAP 5-325 [[place] 1 each PO Q8HR PRN #10 tablet 09/25/16 Unknown Rx 5-325 mg TAB] Apixaban [Eliquis] 5 mg PO BID #60 tablet 10/02/16 Unknown Rx Allergies Allergy/AdvReac Type Severity Reaction Status Date / Time No Known Allergies Allergy Unverified 09/23/16 12:18 Heart Score - HEART Score History: Slightly suspicious EKG: Non-specific Age: > 65 Risk factors: > 3 risk factors or hx of atherosclerotic disease Troponin: < normal limit HEART Score: 5 ED Review of Systems ROS: Stated complaint: CHEST PAIN Other details as noted in HPI Comment: All other systems reviewed and negative Other: Constitutional: No fevers chills or weight loss Eyes: No eye pain visual changes or discharge ENT: No ear pain or throat pain Neck: Denies pain Respiratory: Denies cough wheezing Cardiovascular: Denies palpitations, syncope GI: Denies abdominal pain, nausea, vomiting, diarrhea : Denies dysuria, urinary frequency, or urgency Musculoskeletal: Denies back pain, joint swelling Skin: Denies rash, lesions, erythema Neurologic: Denies headache, numbness, weakness Psychiatric: Denies suicidal ideation, hallucinations ED Past Medical Hx - Past Medical History Previous Medical History?: Yes Hx Hypertension: Yes Hx Heart Attack/AMI: Yes (1 stent) Hx Congestive Heart Failure: Yes Hx Arthritis: Yes (rheumatory) - Surgical History Past Surgical History?: Yes Hx Coronary Stent: Yes Hx Pacemaker: Yes Hx Appendectomy: Yes Additional Surgical History: pacemaker 2016 ([facility], [facility] [place]) - Social History Smoking Status: Never Smoker Substance Use Type: None - Medications Home Medications: Home Medications Medication Instructions Recorded Confirmed Last Taken Type Albuterol Sulfate [Ventolin HFA] 2 puff IH Q4H PRN 09/24/16 09/24/16 Unknown History Aspirin [Aspirin BABY CHEW TAB] 81 mg PO QDAY 09/24/16 09/24/16 Unknown History AtorvaSTATin [Lipitor] 40 mg PO DAILY 09/24/16 09/24/16 Unknown History Benzonatate [Tessalon Perles] 100 mg PO Q8HR 09/24/16 09/24/16 Unknown History Losartan [Cozaar] 50 mg PO QDAY 09/24/16 09/24/16 Unknown History Metoprolol Xl [Metoprolol 25 mg PO QDAY 09/24/16 09/24/16 Unknown History SUCCINATE ER TAB] Nitroglycerin [Nitrostat] 0.4 mg SL Q5M PRN 09/24/16 09/24/16 Unknown History Prednisone [predniSONE] 1 mg PO QDAY 09/24/16 09/24/16 Unknown History Apixaban [Eliquis] 10 mg PO Q12HR #14 tablet 09/25/16 Unknown Rx Clopidogrel [Plavix] 75 mg PO QDAY tablet 09/25/16 Unknown Rx HYDROcodone/APAP 5-325 [[place] 1 each PO Q8HR PRN #10 tablet 09/25/16 Unknown Rx 5-325 mg TAB] Apixaban [Eliquis] 5 mg PO BID #60 tablet 10/02/16 Unknown Rx ED Physical Exam - General Limitations: No Limitations - Other Other exam information: General: No limitations, patient is alert in no acute distress Head exam: Atraumatic, normocephalic Eyes exam: Normal appearance, pupils equal reactive to light, extraocular movements intact ENT: Moist mucous membrane, normal oropharynx Neck exam: Normal inspection, full range of motion, no meningismus nontender Respiratory exam: Clear to auscultation bilateral, no wheezes, rales, crackles Cardiovascular: Normal rate and rhythm, normal heart sounds. chest wall nontender Abdomen: Soft, nondistended, and nontender, with normal bowel sounds, no rebound, or guarding Extremity: Full range of motion normal inspection no deformity, no calf tenderness Back: Normal Inspection, full range of motion, no tenderness Neurologic: Alert, oriented x3, cranial nerves intact, no motor or sensory deficit Psychiatric: normal affect, normal mood Skin: Warm, dry, intact ED Course Vital Signs 01/10/17 01/10/17 01/10/17 14:36 17:51 21:26 Temperature 98.9 F Pulse Rate 81 81 Respiratory 24 20 15 Rate Blood Pressure 151/97 O2 Sat by Pulse 96 Oximetry 01/10/17 01/10/17 21:31 21:41 Temperature Pulse Rate 82 79 Respiratory 14 25 H Rate Blood Pressure 122/102 122/102 O2 Sat by Pulse 96 Oximetry - Reevaluation(s) Reevaluation #1: 01/10/17 23:19 morphine and zofran given. Nitro paste ordered JER score - Jer Score Age > 65: (1) Yes Aspirin use within the Past 7 Days: (0) No 3 or more CAD Risk Factors: (1) Yes 2 or more Angina events in past 24 hrs: (1) Yes Known CAD with more than 50% Stenosis: (0) No Elevated Cardiac Markers: (0) No ST Deviation Greater than 0.5mm: (0) No JER Score: 3 ED Medical Decision Making - Lab Data Result diagrams: 01/10/17 15:05 01/10/17 15:05 Lab Results 01/10/17 01/10/17 01/10/17 Range/Units 15:05 15:05 15:05 WBC 7.2 (4.5-11.0) K/mm3 RBC 4.72 (3.65-5.03) M/mm3 Hgb 10.2 (10.1-14.3) gm/dl Hct 33.5 (30.3-42.9) % MCV 71 L (79-97) fl MCH 22 L (28-32) pg MCHC 30 (30-34) % RDW 19.4 H (13.2-15.2) % Plt Count 335 (140-440) K/mm3 Lymph % (Auto) 35.2 H (13.4-35.0) % [place] % (Auto) 6.0 (0.0-7.3) % Eos % (Auto) 1.2 (0.0-4.3) % Baso % (Auto) 1.0 (0.0-1.8) % Lymph # 2.5 (1.2-5.4) K/mm3 [place] # 0.4 (0.0-0.8) K/mm3 Eos # 0.1 (0.0-0.4) K/mm3 Baso # 0.1 (0.0-0.1) K/mm3 Seg Neutrophils % 56.6 (40.0-70.0) % Seg Neutrophils # 4.1 (1.8-7.7) K/mm3 Sodium 142 (137-145) mmol/L Potassium 3.7 (3.6-5.0) mmol/L Chloride 101.6 (98-107) mmol/L Carbon Dioxide 26 (22-30) mmol/L Anion Gap 18 mmol/L BUN 12 (7-17) mg/dL Creatinine 0.7 (0.7-1.2) mg/dL Estimated GFR > 60 ml/min BUN/Creatinine Ratio 17.14 % Glucose 86 (65-100) mg/dL Calcium 8.6 (8.4-10.2) mg/dL Troponin T < 0.010 (0.00-0.029) ng/mL HCG, Qual Negative (Negative) 01/10/17 Range/Units 19:02 WBC (4.5-11.0) K/mm3 RBC (3.65-5.03) M/mm3 Hgb (10.1-14.3) gm/dl Hct (30.3-42.9) % MCV (79-97) fl MCH (28-32) pg MCHC (30-34) % RDW (13.2-15.2) % Plt Count (140-440) K/mm3 Lymph % (Auto) (13.4-35.0) % [place] % (Auto) (0.0-7.3) % Eos % (Auto) (0.0-4.3) % Baso % (Auto) (0.0-1.8) % Lymph # (1.2-5.4) K/mm3 [place] # (0.0-0.8) K/mm3 Eos # (0.0-0.4) K/mm3 Baso # (0.0-0.1) K/mm3 Seg Neutrophils % (40.0-70.0) % Seg Neutrophils # (1.8-7.7) K/mm3 Sodium (137-145) mmol/L Potassium (3.6-5.0) mmol/L Chloride (98-107) mmol/L Carbon Dioxide (22-30) mmol/L Anion Gap mmol/L BUN (7-17) mg/dL Creatinine (0.7-1.2) mg/dL Estimated GFR ml/min BUN/Creatinine Ratio % Glucose (65-100) mg/dL Calcium (8.4-10.2) mg/dL Troponin T < 0.010 (0.00-0.029) ng/mL HCG, Qual (Negative) - EKG Data -: EKG Interpreted by Me (sinus 84, ) - Medical Decision Making Plant admith the hospital for further workup and evaluation. [employer] has been consulted. morphine, Zofran, NTG paste ordered in the ED - Differential Diagnosis pe, mi, costochondritis, atypical cp, pleurisy Critical Care Time: No Critical care attestation.: If time is entered above; I have spent that time in minutes in the direct care of this critically ill patient, excluding procedure time. ED Disposition Clinical Impression: Chest pain, History of pulmonary embolism, History of heart artery stent, Pacemaker Disposition: OP ADMIT IP TO THIS HOSP Is pt being admited?: Yes Condition: Stable Time of Disposition: 23:15 (Dr Bone/hosp)
[2017-01-10] MEDS ORDERED: NITRO-BID 2% TP ONE (23:20)
[2017-01-11] MEDS ORDERED: NITROSTAT SL PRN (01:09)
[2017-01-11] MEDS ORDERED: MORPHINE IV PRN (01:12)
[2017-01-11] MEDS ORDERED: TYLENOL PO PRN (01:13)
[2017-01-11] MEDS ORDERED: ZOFRAN IV PRN (01:13)
--- NOTE | 2017-01-11 02:43 | History and Physical Report ---
History of Present Illness Date of examination: 01/11/17 Date of admission: 01/11/2017 Chief complaint: Complaint is chest pain History of present illness: History of present illness, she is a 66-year-old female who started having pressure-like chest pain going on for about 24-48 hours, pain radiates to the left upper extremity area and was not associated with shortness of breath nausea or vomiting so pain was not associated with diaphoresis and was relieved with pain medication and nitroglycerin. There is no history of cough no history of fever or chills Past History Past Medical History: CAD, heart failure, hypertension, other (RHEUMATOID ARTHRITIS) Medications and Allergies Allergies Allergy/AdvReac Type Severity Reaction Status Date / Time No Known Allergies Allergy Unverified 09/23/16 12:18 Home Medications Medication Instructions Recorded Confirmed Last Taken Type Albuterol Sulfate [Ventolin HFA] 2 puff IH Q4H PRN 09/24/16 09/24/16 Unknown History Aspirin [Aspirin BABY CHEW TAB] 81 mg PO QDAY 09/24/16 09/24/16 Unknown History AtorvaSTATin [Lipitor] 40 mg PO DAILY 09/24/16 09/24/16 Unknown History Benzonatate [Tessalon Perles] 100 mg PO Q8HR 09/24/16 09/24/16 Unknown History Losartan [Cozaar] 50 mg PO QDAY 09/24/16 09/24/16 Unknown History Metoprolol Xl [Metoprolol 25 mg PO QDAY 09/24/16 09/24/16 Unknown History SUCCINATE ER TAB] Nitroglycerin [Nitrostat] 0.4 mg SL Q5M PRN 09/24/16 09/24/16 Unknown History Prednisone [predniSONE] 1 mg PO QDAY 09/24/16 09/24/16 Unknown History Apixaban [Eliquis] 10 mg PO Q12HR #14 tablet 09/25/16 Unknown Rx Clopidogrel [Plavix] 75 mg PO QDAY tablet 09/25/16 Unknown Rx HYDROcodone/APAP 5-325 [[place] 1 each PO Q8HR PRN #10 tablet 09/25/16 Unknown Rx 5-325 mg TAB] Apixaban [Eliquis] 5 mg PO BID #60 tablet 10/02/16 Unknown Rx Active Meds: Active Medications Acetaminophen (Tylenol) 650 mg PO Q4H PRN PRN Reason: For Pain/Fever/Headache Aspirin (Aspirin) 325 mg PO QDAY [facility] Heparin Sodium (Porcine) (Heparin) 5,000 unit SUB-Q Q12HR [facility] Morphine Sulfate (Morphine) 2 mg IV Q3H PRN PRN Reason: Pain, Moderate (4-6) Nitroglycerin (Nitrostat) 0.4 mg SL Q5M PRN PRN Reason: Chest Pain Nitroglycerin (Nitro-Bid 2%) 0.5 inch TP QIDNTG [facility] PRN Reason: Protocol Ondansetron HCl (Zofran) 4 mg IV Q6H PRN PRN Reason: Nausea And Vomiting Review of Systems Constitutional: no weight loss, no weight gain, no fever, no chills, no anorexia , no fatigue, no weakness, no malaise, no lethargy, no chronic headaches, no poor appetite, no daytime sleepiness, no chronic pain Eyes: bilateral: other (NO BILATERAL EYE SYMPTOMS) Ears, nose, mouth and throat: no ear pain, no ear discharge, no tinnitis, no decreased hearing, no nose pain, no nasal congestion, no nasal discharge, no sinus pressure, no sinus pain, no dental pain, no mouth pain, no dysphagia, no hoarseness, no sore throat, no swelling in mouth, no swelling in throat, no headache, no vertigo, no pain front of neck, no neck fullness/pressure Breasts: deferred Cardiovascular: chest pain, high blood pressure, no palpitations, no syncope, no shortness of breath, no dyspnea on exertion, no decreased exercise tolerance Respiratory: no cough, no cough with sputum, no excessive sputum, no shortness of breath, no dyspnea on exertion, no congestion, no respiratory infections Gastrointestinal: no abdominal pain, no nausea, no vomiting, no change in bowel habits, no hematemesis, no loss of appetite, no jaundice, no dyspepsia/bloating Genitourinary Female: no dyspareunia, no menorrhagia, no dysuria, no urinary frequency, no urgency, no mixed incontinence, no difficulty voiding, no hematuria, no nocturia, no vaginal itching, no vaginal discharge, no vaginal dryness, no decreased libido, no mood problems, no hot flashes, no prolapse symptoms, no Menstruation: postmenopausal Rectal: no pain, no itching, no flatulence Musculoskeletal: no neck pain, no shooting arm pain, no arm numbness/tingling, no low back pain, no shooting leg pain, no leg numbness/tingling, no redness of joints, no morning stiffness, no muscle weakness, no muscle cramps, no myalgias , no atrophy, no limitation of motion, no frequent falls, no fractures, no loss of height, no prior amputations Integumentary: no rash, no pruritis, no redness, no sores, no wounds, no jaundice, no boils, no growths, no bullae, no lesions, no darkening of skin, no depigmentation, no acne, no dryness, no color changes, no unusual bruising, no change in hair/nails, no brittle nails, no striae, no hirsutism, no foot/leg ulcers, no onychomycosis Neurological: no head injury, no paralysis, no weakness, no parathesias, no numbness, no tingling, no seizures, no syncope, no tremors, no vertigo, no headaches, no migraines, no convulsions, no aphasia, no change in speech, no change in mentation, no confusion, no memory loss, no changes in smell/taste, no gait dysfunction, no motor disturbance, no sensory deficit, no double vision , no loss of vision, no hearing difficulties, no burning pain, no paralysis Psychiatric: no anxiety, no memory loss, no change in sleep habits, no sleep disturbances, no insomnia, no hypersomnia, no suicidal ideation, no disorientation, no hallucinations, no paranoia, no depression, no hopelessness, no anhedonia, no difficulties concentrating, no confusion, no irritability, no sadness/tearfullness Endocrine: no cold intolerance, no heat intolerance, no polyphagia, no excessive thirst, no polydipsia, no polyuria, no excessive sweating, no flushing , no weight change, no increase in ring/shoe/hat size, no deepening of the voice , no thyroid mass, no high blood sugars, no low blood sugars Hematologic/Lymphatic: no easy bruising, no easy bleeding, no lymphadenopathy, no lymphedema, no thrombophilia Allergic/Immunologic: no urticaria, no allergic rhinitis, no anaphylaxis, no angioedema Exam - Constitutional Vitals: Temp Pulse Resp BP Pulse Ox 98.9 F 67 16 147/76 100 07/11/17 14:36 01/11/17 02:00 01/11/17 02:00 01/11/17 02:00 01/11/17 02:00 General appearance: Present: mild distress. Absent: well-nourished, disheveled , malodorous - EENT Eyes: Present: PERRL, EOM intact ENT: clear oral mucosa, dentition normal, no oropharyngeal erythema, no poor dentition - Neck Neck: Present: supple, normal ROM - Respiratory Respiratory effort: normal - Cardiovascular Rhythm: regular Heart Sounds: Present: S1 & S2. Absent: gallop, systolic murmur, diastolic murmur, click - Extremities Extremities: no ischemia, No edema Peripheral Pulses: within normal limits - Abdominal General gastrointestinal: Present: soft, non-tender, non-distended. Absent: tender, distended, rigid, hepatomegaly, splenomegaly Female genitourinary: Present: deferred - Rectal Rectal Exam: deferred - Musculoskeletal Musculoskeletal: strength equal bilaterally - Psychiatric Psychiatric: appropriate mood/affect Results - Labs CBC & Chem 7: 01/10/17 15:05 01/10/17 15:05 Labs: Laboratory Last Values WBC 7.2 K/mm3 (4.5-11.0) 01/10/17 15:05 RBC 4.72 M/mm3 (3.65-5.03) 01/10/17 15:05 Hgb 10.2 gm/dl (10.1-14.3) 01/10/17 15:05 Hct 33.5 % (30.3-42.9) 01/10/17 15:05 MCV 71 fl (79-97) L 01/10/17 15:05 MCH 22 pg (28-32) L 01/10/17 15:05 MCHC 30 % (30-34) 01/10/17 15:05 RDW 19.4 % (13.2-15.2) H 01/10/17 15:05 Plt Count 335 K/mm3 (140-440) 01/10/17 15:05 Lymph % (Auto) 35.2 % (13.4-35.0) H 01/10/17 15:05 [place] % (Auto) 6.0 % (0.0-7.3) 01/10/17 15:05 Eos % (Auto) 1.2 % (0.0-4.3) 01/10/17 15:05 Baso % (Auto) 1.0 % (0.0-1.8) 01/10/17 15:05 Lymph # 2.5 K/mm3 (1.2-5.4) 01/10/17 15:05 [place] # 0.4 K/mm3 (0.0-0.8) 01/10/17 15:05 Eos # 0.1 K/mm3 (0.0-0.4) 01/10/17 15:05 Baso # 0.1 K/mm3 (0.0-0.1) 01/10/17 15:05 Seg Neutrophils % 56.6 % (40.0-70.0) 01/10/17 15:05 Seg Neutrophils # 4.1 K/mm3 (1.8-7.7) 01/10/17 15:05 Sodium 142 mmol/L (137-145) 01/10/17 15:05 Potassium 3.7 mmol/L (3.6-5.0) 01/10/17 15:05 Chloride 101.6 mmol/L (98-107) 01/10/17 15:05 Carbon Dioxide 26 mmol/L (22-30) 01/10/17 15:05 Anion Gap 18 mmol/L 01/10/17 15:05 BUN 12 mg/dL (7-17) 01/10/17 15:05 Creatinine 0.7 mg/dL (0.7-1.2) 01/10/17 15:05 Estimated GFR > 60 ml/min 01/10/17 15:05 BUN/Creatinine Ratio 17.14 % 01/10/17 15:05 Glucose 86 mg/dL (65-100) 01/10/17 15:05 Calcium 8.6 mg/dL (8.4-10.2) 01/10/17 15:05 Troponin T < 0.010 ng/mL (0.00-0.029) 01/10/17 19:02 HCG, Qual Negative (Negative) 01/10/17 15:05 Assessment and Plan - Patient Problems (1) Chest pain Current Visit: Yes Status: Acute Qualifiers: Chest pain type: C Ischemic chest pain type: I Plan to address problem: Patient will be admitted to medical floor on telemetry using chest pain pathway and will have troponin level checked every 6 hours 2 levels, patient will be on Nitropaste half inch to anterior chest wall every 6 hours and will be on aspirin 325 mg by mouth daily. Patient will be on oxygen by nasal cannula 2 L/ m I will be on IV morphine 2 mg every 3 hours as needed for pain and IV Zofran for nausea vomiting as well as Tylenol by mouth for fever or headache patient will have lexicon stress test done this morning 01/11/2017 and will remain nothing by mouth for stress test. Patient will have cardiology consult with Dr. Cleve Brunson
[2017-01-11] MEDS: NITRO-BID 2% TP SCH ×4 (06:58→19:02)
[2017-01-11] MEDS ORDERED: ASPIRIN PO SCH (10:00)
[2017-01-11] MEDS ORDERED: HEPARIN SUB-Q SCH (10:00)
--- NOTE | 2017-01-11 12:14 | Consultation ---
History of Present Illness Consult date: 01/11/17 Requesting physician: MASOOD NAVA Consult reason: chest pain History of present illness: This is a 66-year-old patient with a past medical history significant for CAD, s /p PCI of RCA in 08/2016 and prior LAD stent, left lower pulmonary embolism now on Eliquis, bilateral popliteal thrombosis, HTN, HLP, RA, PPM in situ. The patient had recent PCI of RCA in August and had complicated course which required dual chamber pacemaker placement. She is followed in our office by Dr. Poon. She presented with c/o chest pain since yesterday ~2:15PM. She describes her chest pain as a midsternal and sometimes right-sided intermittent stabbing pain that was associated with SOB. She also noted some left sided pleuritic ribcage pain yesterday, as well. Until yesterday, the patient has been chest pain free since the diagnosis of her PE and that since admission, her chest pain has resolved. She states that her pain is not the same as her prior cardiac or PE pain. She denies any palpitations, n/v, diaphoresis, dizziness, or syncope. Of note, she is supposed to be on ASA, Plavix, and Eliquis. However, she states that recently, she has only intermittently taken her Plavix because the pill is too big for her to swallow sometimes. Echo done showed EF 55-60%, moderate LVH, mild aortic cusp sclerosis, mild AR, mild to moderate MR, mild TR, mild pulmonary HTN, RVSP 41mmHg, mild MN. Past History Past Medical History: CAD, heart failure, hypertension, other (RHEUMATOID ARTHRITIS; PPM in situ) Medications and Allergies Allergies Allergy/AdvReac Type Severity Reaction Status Date / Time No Known Allergies Allergy Unverified 09/23/16 12:18 Home Medications Medication Instructions Recorded Confirmed Last Taken Type Albuterol Sulfate [Ventolin HFA] 2 puff IH Q4H PRN 09/24/16 01/11/17 Unknown History Aspirin [Aspirin BABY CHEW TAB] 81 mg PO QDAY 09/24/16 01/11/17 01/09/17 History AtorvaSTATin [Lipitor] 40 mg PO DAILY 09/24/16 01/11/17 01/09/17 History Losartan [Cozaar] 50 mg PO QDAY 09/24/16 01/11/17 01/09/17 History Metoprolol Xl [Metoprolol 25 mg PO QDAY 09/24/16 01/11/17 01/09/17 History SUCCINATE ER TAB] Nitroglycerin [Nitrostat] 0.4 mg SL Q5M PRN 09/24/16 01/11/17 Unknown History Prednisone [predniSONE] 1 mg PO QDAY 09/24/16 01/11/17 01/09/17 History Clopidogrel [Plavix] 75 mg PO QDAY tablet 09/25/16 01/11/17 01/09/17 Rx HYDROcodone/APAP 5-325 [[place] 1 each PO Q8HR PRN #10 tablet 09/25/16 01/11/17 Rx 5-325 mg TAB] Apixaban [Eliquis] 5 mg PO BID #60 tablet 10/02/16 01/11/17 01/09/17 Rx Active Meds: Active Medications Acetaminophen (Tylenol) 650 mg PO Q4H PRN PRN Reason: For Pain/Fever/Headache Aspirin (Aspirin) 325 mg PO QDAY [facility] Last Admin: 01/11/17 11:21 Dose: 325 mg Heparin Sodium (Porcine) (Heparin) 5,000 unit SUB-Q Q12HR [facility] Last Admin: 01/11/17 11:23 Dose: Not Given Morphine Sulfate (Morphine) 2 mg IV Q3H PRN PRN Reason: Pain, Moderate (4-6) Last Admin: 01/11/17 11:21 Dose: 2 mg Nitroglycerin (Nitrostat) 0.4 mg SL Q5M PRN PRN Reason: Chest Pain Nitroglycerin (Nitro-Bid 2%) 0.5 inch TP QIDNTG [facility] PRN Reason: Protocol Last Admin: 01/11/17 11:21 Dose: 0.5 inch Ondansetron HCl (Zofran) 4 mg IV Q6H PRN PRN Reason: Nausea And Vomiting Review of Systems All systems: negative Cardiovascular: chest pain, shortness of breath Physical Examination Vital Signs Temp Pulse Resp BP Pulse Ox 98.9 F 81 24 151/97 96 01/10/17 14:36 01/10/17 14:36 01/10/17 14:36 01/10/17 14:36 01/10/17 14:36 General appearance: no acute distress HEENT: Positive: Normocephaly, Mucus Membranes Moist Neck: Positive: neck supple, trachea midline Cardiac: Positive: Reg Rate and Rhythm, S1/S2 Lungs: Positive: Normal Exam, clear to auscultation, Normal Breath Sounds Neuro: Positive: Grossly Intact, Cranial Nerve 2-12 Intact Abdomen: Positive: Unremarkable, Soft, Active Bowel Sounds. Negative: Tender Skin: Positive: Clear. Negative: Rash, Wound Musculoskeletal: No Fluid Collection, No Pain, Normal Range of Motion Extremities: Present: upper extr. pulses, lower extr. pulses. Absent: edema Results 01/10/17 15:05 01/10/17 15:05 - Imaging and Cardiology Echo: report reviewed Cardiac cath: report reviewed EKG: report reviewed, image reviewed EKG interpretations - Telemetry EKG Rhythm: Sinus Rhythm - EKG Sinus rhythms and dysrhythmias: sinus rhythm Assessment and Plan Assessment: Chest pain, atypical - ECG with NAF; Skyler negative for AMI CAD, s/p PCI PPM in situ H/O PE and DVT - on Eliquis HTN HLP RA Noncompliance - has only intermittently been taking Plavix because the pill is too big for her to swallow sometimes; importance of compliance reiterated. Plan: Resume home ASA 81, losartan, eliquis, plavix, and lipitor. Initiate lopressor, 12.5mg PO BID. Titrate as tolerated. Pt was scheduled for stress test this AM but it was cancelled because pt stated she had stress test recently. Review of [facility] records revealed that pt did have stress MPI on 08/18/2016, which was abnormal and which prompted LHC on 08/19/2016. Plan for repeat lexiscan MPI stress test in AM pending pt remains chest pain free and clinically and hemodynamically stable overnight. NPO after MN. Assessment and plan reviewed with pt at bedside. The patient has been seen in conjunction with Dr. Best who agrees with the assessment and plan of care.
--- NOTE | 2017-01-11 15:31 | Admit Criteria Form ---
Admission Criteria Documentation: CHEST PAIN Clinical Indications for Admission to Inpatient Care (Place 'X' for any and all applicable criteria): Admission is indicated for chest pain and ANY ONE of the following(1)(2)(3)(4)(5 ): [ ]I. Angina with acute coronary syndrome (Also use Myocardial Infarction or Angina guideline) [ ]II. Hemodynamic instability [ ]III. Angina needing acute intervention as indicated by ALL of the following( 11)(12): [ ]a) Unstable angina is present as indicated by angina that is ANY ONE of the following: [ ]i) New onset [ ]ii) Nocturnal [ ]iii) Prolonged at rest [ ]iv) Progressive [ ]b) Angina warrants acute intervention as indicated by ANY ONE of the following: [ ]i) Recurrent angina (e.g, not responding as previously to treatment) [ ]ii) Angina at rest or with low-level activities despite initial medical therapy [ ]iii) New or presumably new ST-segment depression on ECG [ ]iv) Signs or symptoms of heart failure (eg, dyspnea, pulmonary edema) [ ]v) New or worsening mitral regurgitation [ ]vi) Hemodynamic instability [ ]vii) Dangerous arrhythmia (eg, sustained ventricular tachycardia) [ ]viii) History of percutaneous coronary intervention within 6 months [ ]ix) History of coronary artery bypass graft surgery [ ]x) JER risk score of 2 or greater[A] [ ]xi) History of Diabetes(14) [ ]xii) High-risk cardiac ischemia findings on noninvasive testing (e.g, echocardiogram, treadmill testing, nuclear scan) [ ]xiii) Chronic renal insufficiency (ie, estimated GFR less than 60 mL/min/1.732m) [ ]xiv) Left ventricular ejection fraction less than 40% [ ]IV. Evidence of AR (eg, cardiac biomarkers positive, ST-segment elevation on ECG) also use Myocardial Infarction Criteria Form. [ ]V. Pulmonary edema [ ]. Respiratory distress [ ]VII. Chest pain indicative of serious diagnosis other than coronary artery disease (eg, aortic dissection) [ ]VIII. Contraindications and/or Inappropriate clinical situations for Observational Care in patients with Chest Pain, when ANY ONE of the following is required: [ ]a) Patient with risk factor for pulmonary embolism, acute coronary syndrome and myocardial infarction (18) [ ]b) Patient with Pulmonary embolism require an average LOS of 4.3 days, therefore emergency department observation management is inappropriate 18,23 [ ]c) Painful condition/s in the elderly, have the highest rate of recidivism after emergency department observation management (10.8%) 20,21,22 [ ]d) Elevated cardiac biomarker requires intensive and exhaustive care (19) [X ]IX. General contraindications and/or Inappropriate clinical situations for Observational Care in patients with Chest Pain, when ANY ONE of the following is required: [X ]a) Prediction of prolongation of LOS based on ANY ONE of the following may be considered as a contraindication for observational care 2, 3, 4, 5, 6, 7, 8, 9, 10, 11 [ X]i) Age > 65 yrs. [ ]ii) Patient arriving by ambulance [ ]iii) Patient with high acuity [ ]iv) Patient requiring vital sign monitoring [ ]v) Patient on IV medication [ ]b) Systolic blood pressures 180mmHg 3,12 [ ]c) Patient with altered mental status including delirium and other alteration of consciousness, (3) [ ]d) Patient whose discharge disposition will be to a snf home or rehabilitation home should not be managed in Emergency Department Observation Unit. CMS rule requires 3 days hospital stay before such placement. 3,13 [ ]e) Patient with failure to thrive due to broad array of etiologies 3,16,17 [ ]f) Inability to ambulate 3,14 Extended stay beyond goal length of stay may be needed for (1)(28): [ ]a) Specific condition diagnosed after evaluation (eg, pulmonary embolism, aortic dissection) [ ]b) Unstable angina [ ]c) Continued suspicion of acute coronary syndrome with inability to complete needed cardiac evaluation (eg, patient clinically unable to undergo stress testing) [ ]d) Myocardial infarction (Contents from ANGINA and CHEST PAIN clinical indications for admission to inpatient care have been integrated in this form) The original [facility] content created by [employer] has been revised. The portions of the content which have been revised are identified through the use of italic text or in bold, and [facility] [employer] has neither reviewed nor approved the modified material. All other unmodified content is copyright [facility]. Please see references footnoted in the original [facility] [employer] edition 2016 Admission Criteria Met: Yes
--- NOTE | 2017-01-11 15:56 | Event Note ---
Date: 01/11/17 Patient was admitted this morning with chest pain, patient seen and evaluated medical records reviewed Scheduled stress test was canceled as patient had stress test as well as left heart cath in August 2016, cardiology evaluation and recommendations noted and appreciated, and continues to have chest pain may have stress test tomorrow Plan of care discussed the patient and her nurse
[2017-01-11] MEDS: PLAVIX PO SCH (19:00)
[2017-01-11] MEDS: COZAAR PO SCH (19:00)
[2017-01-11] MEDS: ELIQUIS PO SCH ×2 (19:01→22:17)
[2017-01-11] MEDS: DELTASONE PO SCH ×2 (19:31→22:17)
[2017-01-11] MEDS: LOPRESSOR PO SCH (22:17)
[2017-01-12] MEDS: NITRO-BID 2% TP SCH ×3 (06:02→14:00)
[2017-01-12] MEDS: PLAVIX PO SCH (09:54)
[2017-01-12] MEDS: ELIQUIS PO SCH (09:55)
[2017-01-12] MEDS: DELTASONE PO SCH (09:55)
[2017-01-12] MEDS: COZAAR PO SCH (09:55)
[2017-01-12] MEDS: LOPRESSOR PO SCH (09:56)
[2017-01-12] MEDS ORDERED: BABY ASPIRIN PO SCH (10:00)
[2017-01-12] MEDS ORDERED: LEXISCAN IV ONE (10:31)
--- NOTE | 2017-01-12 14:30 | Discharge Summary ---
Providers - Providers Date of Admission: 01/11/17 01:07 Date of discharge: 01/12/17 Attending physician: MARY CALVO Primary care physician: [employer] Hospitalization Reason for admission: chest pain Condition: Good Pertinent studies: Lexiscan stress test negative for reversible ischemia; normal left ventricular function and ejection fraction Hospital course: Pleasant 66-year-old female patient with significant past medical history of coronary artery disease and rheumatoid arthritis hypertension chronic pain syndrome, Dyslipidemia was admitted through emergency room with left-sided chest pain Patient was admitted symptomatically managed, in view of her multiple risk factors patient underwent stress test which was negative for ischemia, and normal left ventricular function, Patient symptoms significantly improved Today she is comfortable in bed denies chest pain or shortness of breath, alert awake oriented 3, vital signs stable, Ambulating, taking oral nutrition [id number] evaluation physical examination done by me. Discharge is unremarkable Patient is hemodynamically stable at time of discharge Final diagnosis; Chest pain Negative stress test Noncardiac pain probably gastroesophageal reflux disease Rheumatoid arthritis Coronary artery disease status post PCI s/p PPM Dyslipidemia History of pulmonary embolism Chronic anticoagulation Disposition: TO HOME OR SELFCARE Time spent for discharge: 32 min Core Measure Documentation - Palliative Care Palliative Care/ Comfort Measures: Not Applicable - Core Measures Any of the following diagnoses?: none Exam - Constitutional Vitals: Temp Pulse Resp BP Pulse Ox 98.5 F 75 20 152/80 94 01/12/17 08:46 01/12/17 11:16 01/12/17 08:46 01/12/17 11:16 01/12/17 08:46 General appearance: Present: no acute distress, well-nourished - EENT Eyes: Present: PERRL, EOM intact - Neck Neck: Present: supple, normal ROM - Respiratory Respiratory effort: normal Plan Activity: no restrictions Diet: other (cardiac diet) Additional Instructions: if you have chest pain or shortness of breath contact M.D. or go to emergency room. Follow up with: ARACELIS PEARCE MD [Primary Care Provider] - 7 Days STACEY MULLINS MD [Staff Physician] - 7 Days Prescriptions: RX: Apixaban [Eliquis] 5 mg PO BID #60 tablet RX: Bacitracin Zinc/Polymyx B Sulf [Double Antibiotic Ointment] 28.4 gm TP BID # 1 oint...g. RX: HYDROcodone/APAP 5-325 [[place] 5-325 mg TAB] 1 each PO BID PRN #10 tablet PRN Reason: Pain RX: predniSONE [Deltasone] 5 mg PO BID #60 tablet
[2017-01-12 15:29] VITALS: BP 119/64
--- NOTE | 2017-01-12 15:47 | Progress Note ---
Assessment and Plan Assessment: Chest pain, atypical - currently resolved; ECG with NAF; Skyler negative for AMI CAD, s/p PCI PPM in situ H/O PE and DVT - on Eliquis HTN HLP RA Noncompliance - importance of compliance reiterated. Plan: S/p lexiscan MPI stress test this AM which was negative for ischemia. Currently stable cardiac status. Cont present cardiac management. Pt may discharge home from cardiology standpoint. Follow up in our office with Dr. Poon within 2 weeks of hospital discharge ). The patient has been seen in conjunction with Dr. Valeria Brunson who agrees with the assessment and plan of care. Subjective Date of service: 01/12/17 Principal diagnosis: atypical chest pain Interval history: seen in stress lab, no complaints. VSS. Objective Last Vital Signs Temp 97.6 F 01/12/17 13:00 Pulse 61 01/12/17 13:00 Resp 18 01/12/17 13:00 BP 119/64 01/12/17 13:00 Pulse Ox 96 01/12/17 13:00 - Physical Examination General: Appears Well, No Apparent Distress HEENT: Positive: PERRL, Normocephaly, Mucus Membranes Moist Neck: Positive: neck supple, trachea midline Cardiac: Positive: Reg Rate and Rhythm, S1/S2 Lungs: Positive: Normal Exam, clear to auscultation, Normal Breath Sounds Neuro: Positive: Grossly Intact, Cranial Nerve 2-12 Intact Abdomen: Positive: Unremarkable, Soft, Active Bowel Sounds. Negative: Tender Skin: Positive: Clear. Negative: Rash, Wound Musculoskeletal: No Fluid Collection, No Pain, Normal Range of Motion Extremities: Present: upper extr. pulses, lower extr. pulses. Absent: edema - Imaging and Cardiology EKG: report reviewed, image reviewed Echo: report reviewed Cardiac cath: report reviewed - EKG Sinus rhythms and dysrhythmias: sinus rhythm
--- NOTE | 2017-01-12 15:49 | Event Note ---
Date: 01/12/17 Stress MPI (lexiscan): 1. Negative for ischemia Rm MASSEY NP / DR. Valeria Brunson
== END 2017-01-12 17:00 | disposition home or self-care (01) | DRG 392 ==
LOC: ED 14:28 → 4A 01-11 01:07
PROVIDERS: ADMIT Internal Medicine; ATTEND Internal Medicine
DX: K21.9 Gastro-esophageal reflux disease without esophagitis (principal); E78.5 Hyperlipidemia, unspecified; M06.9 Rheumatoid arthritis, unspecified; I25.10 Atherosclerotic heart disease of native coronary artery without angina pectoris; I11.0 Hypertensive heart disease with heart failure; Z98.61 Coronary angioplasty status; Z86.711 Personal history of pulmonary embolism; Z91.19 Patient's noncompliance with other medical treatment and regimen
CPT/HCPCS: 36415; 78452; 80048; 84484; 84703; 85025; 93005; 93010; 93017; 94760; 96374; 96375; 99285; A9270-GY; A9502; J1644; J2270; J2405; J2785; J7512